=== PATIENT | male | born 1945 | race Caucasian/White ===

== ENCOUNTER 2022-07-14 13:50 | Inpatient (IN) | payer OTHER ==
[~2022-07-14] VITALS: Ht 172.7 cm; Wt 77.5 kg
[2022-07-14 15:04] LABS: BASOPHILS ABSOLUTE AUTO 0.01 K/mm3 (0.00-0.23); BASOPHILS PERCENT AUTO 0 % (0-2); EOSINOPHILS ABSOLUTE AUTO 0.04 K/mm3 (0.00-0.68); EOSINOPHILS PERCENT AUTO 1 % (0-6); Hemoglobin 13.8 g/dL (13.5-17.5); IMMATURE GRAN ABSOLUTE AUTO 0.01 K/mm3 (0.00-0.10); IMMATURE GRAN PERCENT AUTO 0 % (0-1); LYMPHOCYTES ABSOLUTE AUTO 1.06 K/mm3 (0.84-5.20); LYMPHOCYTES PERCENT AUTO 14 % (21-46); MONOCYTES ABSOLUTE AUTO 0.61 K/mm3 (0.16-1.47); MONOCYTES PERCENT AUTO 8 % (4-13); Mean Corpuscular HGB 29.8 pg (26.0-34.0); Mean Corpuscular HGB Conc 32.9 g/dL (31.5-36.5); Mean Corpuscular Volume 91 fL (80-100); Mean Platelet Volume 12.1 fL (9.1-12.4); NEUTROPHILS ABSOLUTE AUTO 6.05 K/mm3 (1.96-9.15); NEUTROPHILS PERCENT AUTO 78 % (41-73); Platelet Count 160 K/mm3 (150-400); RDW Coefficient Variation 14.2 % (11.7-14.2); RDW Standard Deviation 47.6 fL (35.1-46.3); Red Blood Cell Count 4.63 M/mm3 (4.30-5.90); White Blood Cell Count 7.78 K/mm3 (4.00-11.30)
[2022-07-14] MEDS ORDERED: JARDIANCE10 MG PO (15:13)
[2022-07-14] MEDS ORDERED: LISI20 PO (15:13)
[2022-07-14] MEDS ORDERED: CARV6.25 PO (15:13)
[2022-07-14] MEDS ORDERED: Cyclobenzaprine5 MG PO (15:13)
[2022-07-14] MEDS ORDERED: TORSE20 PO (15:14)
[2022-07-14] MEDS ORDERED: SPIR25 PO (15:14)
[2022-07-14] MEDS ORDERED: OXYC5 PO (15:14)
[2022-07-14] MEDS ORDERED: ASPIR 8181 MG PO (15:15)
[2022-07-14] MEDS ORDERED: CELEXA40 M1 PO (15:15)
[2022-07-14] MEDS ORDERED: ATOR40TA PO (15:15)
[2022-07-14 15:16] LABS: Source, Urine Voided
[2022-07-14] MEDS ORDERED: GLYBURIDE PO (15:16)
[2022-07-14 15:29] LABS: Thyroid Stimulating Hormone 0.537 uIU/mL (0.360-4.800)
[2022-07-14 15:35] LABS: Albumin, Blood 3.3 g/dL (3.4-5.0); Bilirubin, Total 0.9 mg/dL (0.1-1.0); Bun/Creatinine Ratio 21.1 (12.0-20.0); Calcium, Blood 9.1 mg/dL (8.5-10.1); Creatinine, Blood 3.5 mg/dL (0.60-1.20); Globulin, Blood 3.3 g/dL (2.2-4.0); Potassium, Blood 6.7 mmol/L (3.5-5.5); Total Protein, Blood 6.6 g/dL (6.4-8.2)
[2022-07-14 15:41] LABS: Appearance, Urine Clear (Clear); Bilirubin, Urine Neg (Neg); Blood, Urine Neg (Neg); Color, Urine Yellow (P-Yellow); Glucose Qualitative, Urine 2+ (Neg); Ketones, Urine Neg (Neg); Leukocyte Esterase, Urine Neg (Neg); Nitrite, Urine Neg (Neg); Protein, Urine Neg (Neg); Urobilinogen, Urine NORM (Normal)
[2022-07-14 20:07] LABS: Bun/Creatinine Ratio 23.8 (12.0-20.0); Calcium, Blood 9.1 mg/dL (8.5-10.1); Creatinine, Blood 2.77 mg/dL (0.60-1.20); Potassium, Blood 5.2 mmol/L (3.5-5.5)
[2022-07-15 03:51] LABS: BASOPHILS ABSOLUTE AUTO 0.02 K/mm3 (0.00-0.23); BASOPHILS PERCENT AUTO 0 % (0-2); EOSINOPHILS ABSOLUTE AUTO 0.07 K/mm3 (0.00-0.68); EOSINOPHILS PERCENT AUTO 1 % (0-6); Hematocrit 40.5 % (37.0-53.0); IMMATURE GRAN ABSOLUTE AUTO 0.02 K/mm3 (0.00-0.10); IMMATURE GRAN PERCENT AUTO 0 % (0-1); LYMPHOCYTES ABSOLUTE AUTO 1.29 K/mm3 (0.84-5.20); LYMPHOCYTES PERCENT AUTO 19 % (21-46); MONOCYTES PERCENT AUTO 11 % (4-13); Mean Corpuscular HGB 29.7 pg (26.0-34.0); Mean Corpuscular HGB Conc 32.1 g/dL (31.5-36.5); Mean Corpuscular Volume 93 fL (80-100); Mean Platelet Volume 12.1 fL (9.1-12.4); NEUTROPHILS ABSOLUTE AUTO 4.57 K/mm3 (1.96-9.15); NEUTROPHILS PERCENT AUTO 69 % (41-73); Platelet Count 129 K/mm3 (150-400); RDW Coefficient Variation 14.2 % (11.7-14.2); RDW Standard Deviation 48.5 fL (35.1-46.3); Red Blood Cell Count 4.37 M/mm3 (4.30-5.90); White Blood Cell Count 6.67 K/mm3 (4.00-11.30)
[2022-07-15 04:17] LABS: Alanine Aminotransfer (ALT/SGP 10 U/L (12-78); Albumin, Blood 2.8 g/dL (3.4-5.0); Albumin/Globulin Ratio 0.9 (0.8-1.8); Alk Phos 56 U/L (50-136); Anion Gap 6 mmol/L (6-16); Aspartate Aminotrans (AST/SGOT <3 U/L (12-37); Bilirubin, Total 0.8 mg/dL (0.1-1.0); Blood Urea Nitrogen 55 mg/dL (8-24); Bun/Creatinine Ratio 24.3 (12.0-20.0); CO2, Blood 19 mmol/L (21-32); Calcium, Blood 8.5 mg/dL (8.5-10.1); Chloride, Blood 111 mmol/L (98-108); Creatinine, Blood 2.26 mg/dL (0.60-1.20); Globulin, Blood 3.2 g/dL (2.2-4.0); Glomerular Filtration Rate 29 (60-); Glucose, Blood 48 mg/dL (70-99); Potassium, Blood 5.6 mmol/L (3.5-5.5); Sodium, Blood 136 mmol/L (136-145)
--- NOTE | 2022-07-15 05:00 | NUR ---
SHIFT SUMMARY ASSUMED CARE OF PT AT 1900. PT IS A/OX4. HEART SOUNDS REGULAR, LUNG SOUNDS CLEAR. PT USED HOME CPAP DURING NOC. PT WAIFE STAYED WITH PT AND DID TOTAL CARE. HELPED PT WITH URINAL IN BED. PT WOULD BENIFIT FROM PT/OT. PT HAS SMALL SURGICAL INCISION ON LOWER BACK FROM PREVIOUS SURGERY. PT HAD NO NEW COMPLAINTS. PT GLUCOSE LEVEL WAS LOW THIS AM, PT CURRENTLY EATING SNACK AND AWAITING RECHECK.
[2022-07-15 13:23] LABS: Bun/Creatinine Ratio 27.8 (12.0-20.0); Calcium, Blood 8.3 mg/dL (8.5-10.1); Creatinine, Blood 1.58 mg/dL (0.60-1.20); Potassium, Blood 5.1 mmol/L (3.5-5.5)
--- NOTE | 2022-07-15 16:15 | NUR ---
REPORT GIVEN TO MEDICAL FLOOR RN AT 1611.
--- NOTE | 2022-07-15 16:30 | NUR ---
TRANSFER UPDATE PT TRANSFERED TO [facility] AT 1626 VIA WHEELCHAIR AND ON RA. PT BELONGINGS GATHERED AND TRANSFERED WITH PT. PT FAMILY PRESENT DURING TRANSFER. PT CHART TRANSFERED WITH PT. NS GTT RUNNING PER ORDERS DURING TRANSFER. PT ABLE TO TRANSFER TO AND FROM WHEELCHAIR, TOLERATED FAIR.
--- NOTE | 2022-07-15 17:45 | NUR ---
SHIFT SUMMARY: ASSUMED CARE OF PATIENT UPON HIS TRANSFER FROM PCU, ARRIVING ON MEDICAL FLOOR AT 1630 VIA W/C. DENIED PAIN. A&O X 3, WEAK AND SHAKY IN BLE, ABLE TO TRANSFER TO BED AND CHAIR WITH SBA AND FWW FOR STABILITY. SKIN INTACT WITH EXCEPTION OF INCISION IN LOWER BACK FROM LAMINECTOMY, COVERED BY ADHESIVE DRESSING, NO S/S OF INFECTION, NO DRAINAGE. ABLE TO USE URINAL WITH ASSISTANCE. BREATH SOUNDS COARSE AND DIM THROUGHOUT, ON RA. NS INFUSING AT 150 ML/HR INTO RFA IV. ORIENTED PT TO ROOM AND CALL LIGHT, WHICH IS IN REACH.
--- NOTE | 2022-07-16 05:58 | NUR ---
SHIFT SUMMARY NO ACUTE CHANGES THIS SHIFT. AOX4, SLOW & HESITANT TO RESPOND TO QUESTIONS BUT ABLE TO ANSWER CORRECTLY. SLIGHTLY FORGETFUL. VSS. DENIES PAIN, N/V, OR DYSPNEA. REPORTS FOOD TASTING DIFFERENT LATELY. HS CBG @91, PROVIDED SNACK. HOME CPAP WHILE ASLEEP. @BEDSIDE T/O NIGHT. CALL LIGHT IN REACH. WILL MONITOR.
[2022-07-16 06:14] LABS: Bun/Creatinine Ratio 23.3 (12.0-20.0); Calcium, Blood 8.2 mg/dL (8.5-10.1); Creatinine, Blood 1.2 mg/dL (0.60-1.20)
[2022-07-16] MEDS ORDERED: CARV3.125 PO (13:26)
[2022-07-16] MEDS ORDERED: FURO20 PO (13:27)
--- NOTE | 2022-07-16 13:51 | NUR ---
PATIENT DISCHARGED TO HOME ACCOMPANIED BY SPOUSE. IV SALINE LOCKS REMOVED WITHOUT INCIDENT. PT AND SPOUSE VERBALIZED UNDERSTANDING OF D/C INSTRUCTIONS, GIVEN RX FOR BMP LAB DRAW ORDER FOR 07/18/22. OFF UNIT VIA W/C AT 1344. NO PERSONAL BELONGINGS LEFT BEHIND IN ROOM.
== END 2022-07-16 13:48 | disposition home or self-care (01) | DRG 682 ==
LOC: ER 13:50 → PCU 13:51 → MEDS 07-15 15:29
PROVIDERS: Emergency Medicine; Family Medicine; ADMIT Hospitalist
DX: N17.9 Acute kidney failure, unspecified (principal); G93.41 Metabolic encephalopathy; I21.4 Non-ST elevation (NSTEMI) myocardial infarction; I50.22 Chronic systolic (congestive) heart failure; E87.5 Hyperkalemia; R94.31 Abnormal electrocardiogram [ECG] [EKG]; I25.10 Atherosclerotic heart disease of native coronary artery without angina pectoris; E11.9 Type 2 diabetes mellitus without complications; E78.5 Hyperlipidemia, unspecified; I11.0 Hypertensive heart disease with heart failure; M19.90 Unspecified osteoarthritis, unspecified site; M54.50 Low back pain, unspecified; G89.29 Other chronic pain; E86.0 Dehydration; F17.210 Nicotine dependence, cigarettes, uncomplicated; I44.0 Atrioventricular block, first degree; I25.2 Old myocardial infarction; Z95.1 Presence of aortocoronary bypass graft; Z79.82 Long term (current) use of aspirin; Z79.02 Long term (current) use of antithrombotics/antiplatelets; Z79.899 Other long term (current) drug therapy; Z79.811 Long term (current) use of aromatase inhibitors; Z98.890 Other specified postprocedural states; Z79.891 Long term (current) use of opiate analgesic
CPT/HCPCS: 36415; 71045; 80048; 80053; 81003; 82947; 83735; 84132; 84443; 84484; 85025; 93005; 93010; 93306; 94660; 94760; 96361; 96372; 96374; 96375; 97110; 97116; 97161; 99285-25; A9270; G0378; J0610; J1644; J1815; J7030; J7799